=== PATIENT | female | born 1940 | race Two or more races ===

== ENCOUNTER 2019-03-02 09:26 | Outpatient (CLI) | payer OTHER | END 2019-03-02 09:37 | disposition home or self-care (01) | LOC: RX STUDY 09:26 | DX: H90.3 Sensorineural hearing loss, bilateral (principal); R10.13 Epigastric pain ==

== ENCOUNTER 2020-04-11 14:24 | Outpatient (CLI) | payer OTHER | END 2020-04-11 14:26 | disposition home or self-care (01) | LOC: RAD 14:24 | DX: M54.5 Low back pain (principal); M54.16 Radiculopathy, lumbar region ==

== ENCOUNTER 2020-05-16 08:55 | Outpatient (CLI) | payer OTHER | END 2020-05-16 09:05 | disposition home or self-care (01) | LOC: MRI 08:55 | PROVIDERS: ATTEND Psychiatry & Neurology Clinical Neurophysiology | DX: G20 Parkinson's disease (principal); D32.0 Benign neoplasm of cerebral meninges | CPT/HCPCS: 70551 ==

== ENCOUNTER 2022-05-06 07:49 | Outpatient (CLI) | payer OTHER | END 2022-05-06 07:58 | disposition home or self-care (01) | LOC: MRI 07:49 | PROVIDERS: ATTEND Physical Medicine & Rehabilitation | DX: M54.14 Radiculopathy, thoracic region (principal); M54.6 Pain in thoracic spine; S22.040A Wedge compression fracture of fourth thoracic vertebra, initial encounter for closed fracture; M51.34 Other intervertebral disc degeneration, thoracic region | CPT/HCPCS: 72146 ==